=== PATIENT | female | born 1955 | race Caucasian/White ===

== ENCOUNTER 2017-06-04 09:52 | Emergency (ER) | payer SELFPAY ==
[~2017-06-04] VITALS: Ht 167.6 cm; Wt 79.8 kg
[2017-06-04] MEDS ORDERED: ASPI-586 PO (10:11)
[2017-06-04] MEDS ORDERED: RISP0.5T21 PO (10:11)
[2017-06-04] MEDS ORDERED: ROSU10TA PO (10:11)
--- NOTE | 2017-06-04 11:19 | Diagnostic Imaging Report ---
INDICATION: Right wrist pain AP, oblique, and lateral views of the right wrist are obtained. No fracture or acute bony abnormality seen. There is chondrocalcinosis. There is degenerative change of the radiocarpal joint and ulnocarpal joint. There is no acute bony abnormality. IMPRESSION: Degenerative findings and chondrocalcinosis of the wrist joint. No acute bony abnormality. Dictated by: Dictated on workstation # [id number]
--- NOTE | 2017-06-04 11:28 | ED Upper Extremity ---
General Chief Complaint: Upper Extremity Stated Complaint: RT WRIST PAIN Nursing Triage Note: PT AMBULATES TO ROOM 10 PT CO OF R WRIST PAIN, STATES WAS WASHING WINDOWS YESTERDAY AND TODAY HAS PAIN AND SWELLING IN R WRIST Nursing Sepsis Screen: No Definite Risk Source: patient Exam Limitations: no limitations History of Present Illness Time seen by provider: 11:25 Initial Comments to ER with reports of right wrist pain. She was washing windows and cleaning her house a few days ago. Today she has swelling and pain in the wrist. No injuries or falls. Onset: last week Severity: moderate Modifying Factors: Worse With Movement Allergies and Home Medications Allergies Coded Allergies: No Known Drug Allergies (Unverified , 06/04/17) Home Medications Aspirin 81 Mg Tablet.dr, 81 MG PO DAILY, (Reported) Risperidone 0.5 Mg Tablet, Unknown Dose PO, (Reported) Rosuvastatin Calcium 10 Mg Tablet, Unknown Dose PO, (Reported) Constitutional: see HPI EENTM: see HPI Respiratory: no symptoms reported Cardiovascular: no symptoms reported Genitourinary: no symptoms reported Musculoskeletal: see HPI Skin: no symptoms reported Psychiatric/Neurological: No Symptoms Reported Past Tgtgegm-Zwowdj-Twcbee Hx Patient Social History Alcohol Use: Denies Use Recreational Drug Use: No Smoking Status: Never a Smoker Recent Foreign Travel: No Contact w/Someone Who Travel: No Recent Infectious Disease Expo: No Recent Hopitalizations: No Physical Abuse: No Sexual Abuse: No Seasonal Allergies Seasonal Allergies: No Surgeries History of Surgeries: No Cardiovascular History of Cardiac Disorders: Yes Cardiac Disorders: Heart Attack, High Cholesterol Neurological History of Neurological Disord: No Reproductive System [employer]AL History: Menopausal Genitourinary History of Genitourinary Disor: No Gastrointestinal History of Gastrointestinal Di: No Musculoskeletal History of Musculoskeletal Dis: No Endocrine History of Endocrine Disorders: No HEENT History of HEENT Disorders: No Cancer History of Cancer: No Psychosocial History of Psychiatric Problem: No Suicide Risk Score: 0 Integumentary History of Skin or Integumenta: No Blood Transfusions History of Blood Disorders: No Physical Exam Vital Signs Vital Sign - Last 12Hours 06/04/17 10:00 Temp 97.9 Pulse 81 Resp 18 B/P (MAP) 142/92 Pulse Ox 95 Capillary Refill : Less Than 3 Seconds General Appearance: WD/WN, no apparent distress HEENT: PERRL/EOMI, normal ENT inspection Neck: non-tender, full range of motion Respiratory: normal breath sounds, no respiratory distress, no accessory muscle use Gastrointestinal: normal bowel sounds, non tender, soft Shoulder: non-tender Elbow/Forearm: normal inspection, non-tender, Right Wrist: Yes pain, Yes soft tissue tenderness, Yes swelling Hand: normal inspection, non-tender, Right Neurologic/Psychiatric: alert, normal mood/affect, oriented x 3 Skin: normal color, warm/dry Progress/Results/Core Measures Results/Orders Vital Signs/I&O Vital Sign - Last 12Hours 06/04/17 10:00 Temp 97.9 Pulse 81 Resp 18 B/P (MAP) 142/92 Pulse Ox 95 Blood Pressure Mean: 109 Diagnostic Imaging Diagonstic Imaging: Xray Comments NAME: JOSH BOLIVAR [facility] REC#: [id number] PT STATUS: REG ER : 1955 PHYSICIAN: LONNY DESAI MD ADMIT DATE: 06/04/17/ER Draft Date of Exam:06/04/17 WRIST, RIGHT, 3 VIEWS OR MORE INDICATION: Right wrist pain AP, oblique, and lateral views of the right wrist are obtained. No fracture or acute bony abnormality seen. There is chondrocalcinosis. There is degenerative change of the radiocarpal joint and ulnocarpal joint. There is no acute bony abnormality. IMPRESSION: Degenerative findings and chondrocalcinosis of the wrist joint. No acute bony abnormality. Dictated on workstation # [id number] Dict: 06/04/17 1114 Trans: 06/04/17 1119 MILLY [phone] Interpreted by: JESSICA CHAVES MD Electronically signed by: Departure Impression Impression: Primary Impression: Arthritis of wrist Disposition: 01 HOME, SELF-CARE Condition: Stable Departure-Patient Inst. Decision time for Depature: 11:26 Referrals: OLU KEN BETHANY N MD GAULT, HOLLY R MD HUERTER, DAVID F MD NO,LOCAL PHYSICIAN (PCP) Primary Care Physician WILL BEAN MD Patient Instructions: NO INSTRUCTIONS GIVEN Add. Discharge Instructions: 1. Use [id number] ibuprofen (Motrin) or naproxen for pain control. This would work better than Tylenol 2. Wear the splint for the next 2-3 days or until the pain subsides 3. Follow-up with a physician of your choosing. All discharge instructions reviewed with patient and/or family. Voiced understanding. PARISH LAGUNAS APRN Jun 04, 2017 11:27
[2017-06-04] MEDS ORDERED: DEXAMETHASONE 10 MG/ML (DECADRON) 1 ML VIAL ONE (11:29)
[2017-06-04] MEDS ORDERED: DEXAMETHASONE PF 10 MG/ML (DECADRON) VIAL IM ONE (11:30)
[2017-06-04 11:42] VITALS: BP 142/92
== END 2017-06-04 11:42 | disposition home or self-care (01) ==
LOC: ER 09:57
DX: M19.031 Primary osteoarthritis, right wrist (principal); I25.2 Old myocardial infarction; E78.00 Pure hypercholesterolemia, unspecified; Z79.82 Long term (current) use of aspirin
CPT/HCPCS: 73110; 96372; 99284